=== PATIENT | female | born 1980 | race Caucasian/White ===

== ENCOUNTER → 2021-04-22 | Outpatient (CLI) | payer MEDICARE, OTHER ==
[~2021-04-22] MED LIST: ALBU2.5V8 INH; ASPI-630 PO; BREX3TAB PO; BUPR100T7 PO; BUSP10TA PO; CALC500T54 PO; CELE100C PO; CHOL500050 PO; CRAN250C PO; CRESTOR5 MG PO; FLUT1DIS3 IH; GABA600T7 PO; HYDR-2759 PO; HYDR25TA PO; LISI-130 PO; MAGN400C PO; MELA5TAB20 PO; METH-562 PO; MULT-121 PO; OMEP40CA7 PO; OXYC1TAB15 PO; SEMA1PEN3 SQ; SENN-189 PO; SERT100T PO; TIZA4TAB2 PO; ZINC50TA39 PO
[2021-04-22 12:42] LABS: BASO % 1 % (0-3); EOS # 0.1 x10^3/uL (0.0-0.7); EOS % 1 % (0-3); HEMATOCRIT 39.8 % (36.0-47.0); HEMOGLOBIN 13.7 g/dL (12.0-15.5); LYMPH # 3.1 x10^3/uL (1.0-4.8); LYMPH % 30 % (24-48); MEAN CORPUSCULAR HEMOGLOBIN 31 pg (25-35); MEAN CORPUSCULAR HGB CONC 34 g/dL (31-37); MEAN CORPUSCULAR VOLUME 91 fL (79-100); MONO # 0.7 x10^3/uL (0.0-1.1); MONO % 6 % (0-9); NEUT # 6.5 x10^3/uL (1.8-7.7); NEUT % 62 % (31-73); PLATELET COUNT 199 x10^3/uL (140-400); RED BLOOD COUNT 4.36 x10^6/uL (3.50-5.40); RED CELL DISTRIBUTION WIDTH 13.1 % (11.5-14.5); WHITE BLOOD COUNT 10.4 x10^3/uL (4.0-11.0)
[2021-04-22 12:53] LABS: PROTHROMBIN TIME PATIENT 12.2 SEC (11.7-14.0)
[2021-04-22 12:55] LABS: ALBUMIN 3.9 g/dL (3.4-5.0); ALBUMIN/GLOBULIN RATIO 1.2 (1.0-1.7); CALCIUM 9.1 mg/dL (8.5-10.1); CREATININE 0.8 mg/dL (0.6-1.0); GFR 79.4; POTASSIUM 3.9 mmol/L (3.5-5.1); TOTAL BILIRUBIN 0.3 mg/dL (0.2-1.0); TOTAL PROTEIN 7.1 g/dL (6.4-8.2)
[2021-04-23 00:13] LABS: HEMOGLOBIN A1C 6.6 % (4.8-5.6)
== END ==
LOC: SURGPAT 09:24
PROVIDERS: ATTEND Neurological Surgery
DX: Z01.812 Encounter for preprocedural laboratory examination (principal); M48.061 Spinal stenosis, lumbar region without neurogenic claudication; M51.06 Intervertebral disc disorders with myelopathy, lumbar region; M54.5 Low back pain; M51.16 Intervertebral disc disorders with radiculopathy, lumbar region
CPT/HCPCS: 36415; 80053; 83036; 85025; 85610; 85730; 87641

== ENCOUNTER 2021-04-26 09:20 | Observation (INO) | payer OTHER, MEDICAID ==
[2021-04-22 10:27] VITALS: BP 139/68
[2021-04-26] VITALS (7 sets, daily range): BP systolic 113–148; BP diastolic 66–101
[~2021-04-26] VITALS: Ht 167.6 cm; Wt 184.7 kg
[~2021-04-26 09:20] MED LIST changes: +HYDROmorphone 2 MG/ML VIAL IVP PRN; +IV RINGERS,LACTATED 1000ML 1,000 ML IV SCH; -METH-562 PO; -OXYC1TAB15 PO; +PROCHLORPERAZINE 10 MG/2 ML VIAL. IVP PRN; -SENN-189 PO; +VANCOMYCIN 1GM IVPB FOR OMNI 250 ML IV PRN; +fentaNYL PF VIAL 100 MCG/2 ML VIAL IVP PRN
[2021-04-26] MEDS ORDERED: GLYCOPYRROLATE 1 MG/5 ML VIAL. ONE (09:27)
[2021-04-26] MEDS ORDERED: PROPOFOL 10 MG/ML (20ML) VIAL. IV ONE ×2 (09:27→13:02)
[2021-04-26] MEDS ORDERED: PHENYLEPHRINE in 0.9% NACL PF 1 MG/10 ML SYRINGE. IV ONE (09:27)
[2021-04-26] MEDS ORDERED: LIDOCAINE 2% PF 5 ML VIAL. ONE (09:27)
[2021-04-26] MEDS ORDERED: ONDANSETRON PF 4 MG/2 ML VIAL. ONE (09:27)
[2021-04-26] MEDS ORDERED: DEXAMETHASONE SOD PHOS 4 MG/ML VIAL ONE (09:27)
[2021-04-26] MEDS ORDERED: ROCURONIUM 50 MG/5 ML VIAL. ONE (09:29)
[2021-04-26] MEDS ORDERED: PROPOFOL 50 ML IV ONE ×3 (09:29→14:01)
[2021-04-26] MEDS ORDERED: fentaNYL PF VIAL 100 MCG/2 ML VIAL ONE ×2 (09:30→15:22)
[2021-04-26] MEDS ORDERED: REMIFENTANIL 2 MG VIAL. IV ONE ×2 (09:31→14:12)
[2021-04-26] MEDS ORDERED: INSULIN LISPRO 100 UNIT/ML 3ML VIAL for OP,RR ONLY. SQ PRN (10:45)
[2021-04-26] MEDS ORDERED: INSULIN LISPRO 100 UNIT/ML 3ML VIAL for OP,RR ONLY. SQ ONE (11:00)
[2021-04-26] MEDS ORDERED: GELATIN SPONGE SIZE 100. ONE (11:49)
[2021-04-26] MEDS ORDERED: BUPIVACAINE MPF 0.5% 30 ML VIAL. ONE (11:49)
[2021-04-26] MEDS ORDERED: LIDOCAINE 1%/EPI 1:100,000 20 ML VIAL. ONE (11:50)
[2021-04-26] MEDS ORDERED: THROMBIN TOPICAL 20,000 UNIT SPRAY.SYRN KIT TP ONE (11:50)
[2021-04-26] MEDS ORDERED: PHENYLEPHRINE 10 MG/ML VIAL. ONE (12:56)
[2021-04-26] MEDS ORDERED: NEOSTIGMINE METHYLSULFATE 5 MG/5 ML SYRINGE. ONE (13:04)
[2021-04-26] MEDS ORDERED: VANCOMYCIN 1 GM VIAL. ONE (14:40)
[2021-04-26] MEDS ORDERED: DESFLURANE > 120 MINUTES IH ONE (15:11)
--- NOTE | 2021-04-26 15:17 | PDOC ---
BRIEF OPERATIVE NOTE Date: Apr 26, 2021 Pre-Op Diagnosis lumbar stenosis, lumbar radiculopathy Post-Op Diagnosis same Procedure Performed left L4-5 laminectomy Surgeon [employer] Consultant none Anesthesia Type: General Blood Loss 25mL Specimens Obtained decompression Findings stenosis, neuromonitoring improved at completion of procedure Complications none apparent CYNTHIA ALFARO MD Apr 26, 2021 15:17
[2021-04-26] MEDS ORDERED: PROCHLORPERAZINE 10 MG/2 ML VIAL. ONE (15:22)
[2021-04-26] MEDS: fentaNYL PF VIAL 100 MCG/2 ML VIAL IVP PRN ×2 (15:25→15:37)
[2021-04-26] MEDS ORDERED: ACETAMINOPHEN 325 MG TABLET. PO PRN (15:30)
[2021-04-26] MEDS ORDERED: diphenhydrAMINE 50 MG/ML VIAL IV PRN (15:30)
[2021-04-26] MEDS ORDERED: hydrOXYzine 25 MG TABLET PO PRN (15:30)
[2021-04-26] MEDS ORDERED: CALCIUM CARBONATE 500 MG TAB.CHEW PO PRN (15:30)
[2021-04-26] MEDS ORDERED: ZOLPIDEM 5 MG TABLET. PO PRN (15:30)
[2021-04-26] MEDS ORDERED: diphenhydrAMINE HCL 25 MG CAPSULE PO PRN (15:30)
[2021-04-26] MEDS ORDERED: IV NORMAL SALINE 1000ML BAG 1,000 ML IV SCH (15:30)
[2021-04-26] MEDS ORDERED: MAG HYDROX/ALUMINUM HYD/SIMETH 30 ML ORAL.SUSP PO PRN (15:30)
[2021-04-26] MEDS ORDERED: MAGNESIUM HYDROXIDE 2,400 MG/30 ML ORAL.SUSP. PO PRN (15:30)
[2021-04-26] MEDS ORDERED: fentaNYL PF VIAL 100 MCG/2 ML VIAL IVP PRN ×2 (15:30)
[2021-04-26] MEDS ORDERED: 0.9 % SODIUM CHLORIDE 10 ML DISP.SYRIN. IV PRN (15:30)
[2021-04-26] MEDS ORDERED: ONDANSETRON PF 4 MG/2 ML VIAL. IVP PRN (15:30)
[2021-04-26] MEDS ORDERED: NALOXONE 0.4 MG/ML VIAL. IV PRN ×2 (15:30)
[2021-04-26] MEDS ORDERED: oxyCODONE/APAP 5/325 1 TAB TABLET PO PRN (15:30)
[2021-04-26] MEDS ORDERED: MORPHINE SULFATE 2 MG/ML INJ. ONE ×2 (15:49→16:12)
[2021-04-26] MEDS: MORPHINE SULFATE 2 MG/ML INJ. IVP PRN ×4 (15:51→16:44)
[2021-04-26] MEDS: METHOCARBAMOL 750 MG TABLET PO SCH ×2 (17:03→21:03)
[2021-04-26] MEDS ORDERED: ALBUTEROL SULFATE 2.5 MG/3 ML NEBU. NEB SCH (18:00)
[2021-04-26] MEDS: PANTOPRAZOLE 40 MG TABLET.DR. PO SCH (19:58)
[2021-04-26] MEDS: FERROUS SULFATE 325 MG TABLET. PO SCH (19:58)
[2021-04-26] MEDS: BUDESONIDE 0.5 MG/2 ML NEBU. NEB SCH (20:30)
[2021-04-26] MEDS ORDERED: NON FORMULARY ITEM (Melatonin 1 TAB) PO SCH (21:00)
[2021-04-26] MEDS: GABAPENTIN 300 MG CAPSULE. PO SCH (21:00)
[2021-04-26] MEDS ORDERED: NON FORMULARY ITEM (Fluticasone/Salmeterol (Advair 250-50 Diskus) 1 PUFF) IH SCH (21:00)
[2021-04-26] MEDS ORDERED: ATORVASTATIN CALCIUM 40 MG TABLET. PO SCH (21:00)
[2021-04-26] MEDS: DOCUSATE SODIUM 100 MG CAPSULE. PO SCH (21:00)
[2021-04-26] MEDS: CELECOXIB 100 MG CAPSULE. PO SCH (21:00)
[2021-04-26] MEDS: SENNOSIDES/DOCUSATE 8.6/50MG TABLET. PO SCH (21:01)
[2021-04-26] MEDS: busPIRone 10 MG TABLET. PO SCH (21:01)
[2021-04-26] MEDS: CALCIUM CARB/VIT D3 500/200 TABLET. PO SCH (21:01)
[2021-04-27 02:40] VITALS: BP 136/71
[2021-04-27] MEDS: PANTOPRAZOLE 40 MG TABLET.DR. PO SCH (06:28)
[2021-04-27] MEDS: oxyCODONE/APAP 5/325 1 TAB TABLET PO PRN ×2 (06:28→11:27)
[2021-04-27 06:37] VITALS: BP 148/89
[2021-04-27] MEDS: BUDESONIDE 0.5 MG/2 ML NEBU. NEB SCH (07:44)
[2021-04-27] MEDS ORDERED: buPROPion SR 100 MG TABLET.SA. PO SCH (08:00)
[2021-04-27] MEDS ORDERED: ALBUTEROL SULFATE 2.5 MG/3 ML NEBU. NEB SCH (08:00)
[2021-04-27] MEDS: GABAPENTIN 300 MG CAPSULE. PO SCH (08:31)
[2021-04-27] MEDS: METHOCARBAMOL 750 MG TABLET PO SCH (08:32)
[2021-04-27] MEDS: busPIRone 10 MG TABLET. PO SCH (08:34)
[2021-04-27] MEDS: CALCIUM CARB/VIT D3 500/200 TABLET. PO SCH (08:35)
[2021-04-27] MEDS: SENNOSIDES/DOCUSATE 8.6/50MG TABLET. PO SCH (08:35)
[2021-04-27] MEDS: CELECOXIB 100 MG CAPSULE. PO SCH (08:35)
[2021-04-27] MEDS: DOCUSATE SODIUM 100 MG CAPSULE. PO SCH (08:35)
[2021-04-27 08:36] VITALS: BP 118/63
[2021-04-27] MEDS: FERROUS SULFATE 325 MG TABLET. PO SCH (08:36)
[2021-04-27] MEDS ORDERED: ASPIRIN CHEWABLE 81 MG TABLET. PO SCH (09:00)
[2021-04-27] MEDS ORDERED: ZINC SULFATE 220 MG CAPSULE. PO SCH (09:00)
[2021-04-27] MEDS ORDERED: SERTRALINE 50 MG TABLET. PO SCH (09:00)
[2021-04-27] MEDS ORDERED: NON FORMULARY ITEM (Brexpiprazole (Rexulti) 1 TAB) PO SCH (09:00)
[2021-04-27] MEDS ORDERED: MULTIVITAMIN with MINERAL TABLET. PO SCH (09:00)
[2021-04-27] MEDS ORDERED: MAGNESIUM OXIDE 400 MG TABLET PO SCH (09:00)
[2021-04-27] MEDS ORDERED: MULTIVITAMIN PO SCH (09:00)
[2021-04-27] MEDS ORDERED: CALCIUM CARBONATE 500 MG TABLET PO SCH (09:00)
[2021-04-27] MEDS ORDERED: NON FORMULARY ITEM (Cranberry Extract (Cranberry) 250 MG) PO SCH (09:00)
[2021-04-27] MEDS ORDERED: LISINOPRIL 20 MG TABLET PO SCH (09:00)
--- NOTE | 2021-04-27 10:51 | PDOC ---
Date of Service: DATE: 04/27/21 TIME: 10:49 Progress Note: S: reports legs are improved sensation without pain, good pain control with oral medication O: AF/VSS, AAOx4, NAD, RAJAN 5/5, sensation intact LT, dressing c/d/i A: POD 1 lumbar laminectomy P: d/c home with standard post-op restrictions Justifications for Admission Other Justification CYNTHIA ALFARO MD Apr 27, 2021 10:51
[2021-04-27] MEDS ORDERED: METH-562 PO (10:58)
[2021-04-27] MEDS ORDERED: SENN-189 PO (10:58)
[2021-04-27] MEDS ORDERED: OXYC1TAB15 PO (10:58)
--- NOTE | 2021-04-27 11:40 | NUR ---
Discharge instructions given to pt at 1125 Pt instructed on dressing changes if needed. Pt verbalized understanding and denied questions. Pt discharged in wheelchair via transport team.
--- NOTE | 2021-04-28 02:11 | OP ---
DATE OF SURGERY: 04/26/2021 SURGEON: Rafi Santiago MD SWIM COACH: None. PROCEDURE: Left lumbar 4-5 laminectomy. PREOPERATIVE DIAGNOSIS: Lumbar stenosis with lumbar radiculopathy. POSTOPERATIVE DIAGNOSIS: Lumbar stenosis with lumbar radiculopathy. TYPE OF ANESTHESIA: General. COMPLICATIONS: None. INDICATIONS FOR THE PROCEDURE: The patient is a pleasant 41-year-old female who has bilateral lower extremity radiculopathy localized to significant stenosis at lumbar 4-5. She has been refractory to conservative management. Please refer to the patient's chart for additional detail. DESCRIPTION OF PROCEDURE: After informed consent was obtained, the patient was brought to the operating room. She was placed under general anesthesia. She was placed in the prone position. All pressure points were checked and padded appropriately. An appropriate incision location was localized with fluoroscopy prior to the initiation of the procedure. Baseline neuromonitoring potentials were obtained. The lumbar region was prepped and draped in the usual sterile fashion. A vertical incision centered over the region of lumbar 4-5 was made with a 10 blade scalpel. Monopolar electrocautery was utilized to dissect the avascular midline to approach the spinous processes of lumbar 4-5. The lamina were exposed at lumbar 4-5. Fluoroscopy was again utilized to verify the appropriate level. Next, a laminectomy was initially performed on the left at lumbar 4-5 utilizing a pneumatic drill as well as Kerrison rongeurs. Upon completion of this, the neural elements were noted to be very well decompressed, verified by direct visualization and gentle palpation with nerve hook and a sabrina. Also, it was noted that neuromonitoring potentials were significantly improved including the contralateral side. At this point, based on all of these things and to maintain the integrity of the spinal elements, it was determined that the left-sided laminectomy was an appropriate decompression based on the patient's symptoms and complaints. After completion of this procedure, hemostasis was obtained with FloSeal, cottonoids, generous irrigation, as well as some minimal use of bipolar electrocautery. The wound was generously irrigated prior to the final closure, the muscles and fascia were reapproximated with 0 Vicryl in a simple interrupted fashion. The subcutaneous tissues were reapproximated with 2-0 Vicryl in interrupted inverted fashion. Skin was reapproximated with 4-0 Vicryl in a running subcuticular fashion. Mastisol and Steri-Strips were applied. The wound was dressed with Telfa, 4 x 4, and Tegaderm. At the end of the procedure, all needle and sponge counts were correct x2. Neuromonitoring potentials were noted to be significantly improved compared to baseline upon completion of the procedure. The patient was subsequently extubated in the operating room and taken to recovery in stable condition. There were no intraprocedural complications apparent. TARUN/[place]/JULIUS DR: Lillian TID: [id number] MTDD
[2021-04-29] MEDS ORDERED: ERGOCALCIFEROL (VITAMIN D2) 50,000 UNIT CAPSULE. PO SCH (09:00)
--- NOTE | 2021-04-29 14:09 | PATHOLOGY ---
[facility] Accession Number: [id number] . 01 Material submitted: . vertebral column - DECOMPRESSION IN FORMALIN TO PATHOLOGY PER SURGEON. Modifiers: LUMAR . 01 Clinical history: . LUMBAR RADICULOPATHY LAMINECTOMY C4-5 . . 02 Diagnosis: Segments of fibrocartilaginous and fibroadipose tissue and bone, lumbar decompression: - Degenerative changes of fibrocartilaginous tissue. (JP:[place] [facility]; 04/29/2021) [facility] 04/29/2021 1325 Local . 02 Comment: There is no evidence of an acute inflammatory process or malignancy. (JPM:pit; 04/29/2021) . 02 Electronically signed: . Raj Bender MD, Pathologist NPI- [id number] . 01 Gross description: . Received in formalin labeled "White, Lillie, decompression" is a 2.4 x 1.9 x 0.3 cm aggregate of carrillo-pink and carrillo-brown rubbery and gritty soft tissue and bone. The specimen is submitted entirely in cassette A1 following decalcification. ([facility] [place]; 04/28/2021) [facility] 04/29/2021 0944 Local . 02 Pathologist provided ICD-10: M51.36 . 02 CPT . 785284, [id number] Specimen Comment: A courtesy copy of this report has been sent to [phone] Specimen Comment: Report sent to DR. DOWNING Specimen Comment: Report sent to Performed at: 01 [facility] [address], [place], [place] [id number] MD Dejuan Ariza MD Phone: [phone] Performed at: 02 [facility] [address] [place], [place] [id number] MD Raj Bender MD Phone: [phone]
[2021-05-03] MEDS ORDERED: NON FORMULARY ITEM (Semaglutide (Ozempic) 1 MG) SQ SCH (09:00)
== END 2021-04-27 11:40 | disposition home or self-care (01) ==
LOC: SURG 09:20 → EDUNIT# 11:30 → 4 SOUTHEST 15:35
PROVIDERS: ADMIT Neurological Surgery; ATTEND Neurological Surgery
DX: M48.061 Spinal stenosis, lumbar region without neurogenic claudication (principal); M54.16 Radiculopathy, lumbar region
CPT/HCPCS: 63047; 81025; 82962; 94640; 94760; 96374; A4213; A4364; A4930; A6402; G0378; G0379; J0780; J1100; J1815; J2270; J2370; J2405; J2704; J2710; J3010; J3370; J3490; J7613; J7626; 76000; A4222; A4452